=== PATIENT | female | born 1930 | race Caucasian/White ===

== ENCOUNTER 2017-06-13 13:44 | Emergency (ER) | payer OTHER ==
[~2017-06-13] VITALS: Ht 157.5 cm; Wt 64.0 kg
[~2017-06-13 13:44] MED LIST: ALENDRONATE SODI5 MG PO; ASPIR 8181 M1 PO; BACITRACIN3.5 GM RIGHT EYE; BACTRIM,SEPT1 TABLET PO; CALCIUM + D3 E1 EACH PO; CALCIUM 1,0001 EACH PO; DETROL LA4 MG PO; DIOVAN160 MG PO; DIOVAN40 MG PO; Ditropan PO; GLUCOSAMIN-CHO1 EACH PO; HUMALOG100 UNIT/1 SC; HUMALOG100 UNITS/ SQ; LANTUS (UNITS)1 UNIT SC; LANTUS 3 M100 UNITS1 SC; LASIX40 MG PO; LIPITOR80 MG PO; METOPROLOL SUCC25 MG PO; OMEPRAZOLE40 M1 PO; PRADAXA150 MG PO; SPIRIVA1 INHALATI IH; TOPROL XL25 MG PO; TOPROL XL50 MG PO; TOPROL XL6.25 MG PO; Toprol XL PO; VICODIN 5-3001 EACH PO; VITAMIN D2000 UNIT PO; VITAMIN D32000 UNI1 PO
[2017-06-13 14:12] LABS: ADD MIUA? NO; BILIRUBIN NEGATIVE; BLOOD NEGATIVE; COLOR STRAW ((YELLOW)); GLUCOSE (STRIP) NEGATIVE; KETONES NEGATIVE; LEUKOCYTES NEGATIVE; NITRITE NEGATIVE; PROTEIN (STRIP) NEGATIVE; SPECIFIC GRAVITY 1.005 (1.000-1.030); UCUL ADDED? NO; UROBILINOGEN 0.2 MG/DL (0.2-1.0)
[2017-06-13 14:33] LABS: HEMATOCRIT 43.8 % (36.0-46.0); MCHC 32.4 G/DL (30.0-36.0); MCV 92.6 FL (83-99); MEAN PLAT.VOLUME 9.8 uM^3 (9.5-12.4); PLATELET COUNT 275 K/uL (156-360); RBC DIS.WIDTH-CV 15.1 % (11.8-14.6); RBC DIS.WIDTH-SD 51.8 % (39-53); RED BLOOD COUNT 4.73 M/uL (3.80-5.20); WHITE BLOOD COUNT 6.3 K/uL (4.1-10.2)
[2017-06-13 14:42] LABS: CHLORIDE 106 mEq/L (99-109); POTASSIUM 3.6 mEq/L (3.7-5.4); SODIUM 142 mEq/L (136-147)
[2017-06-13 14:44] LABS: GLUCOSE 141 mg/dL (70-99)
[2017-06-13 14:45] LABS: ANION GAP 12 MEQ/L (2-14)
[2017-06-13 14:46] LABS: TOTAL BILIRUBIN 0.5 mg/dL (0.0-1.0)
[2017-06-13 14:48] LABS: ALKALINE PHOSPHATASE 71 IU/L (3-129); GFR ESTIMATE (CALCULATED) > 59 mL/min/
[2017-06-13 14:49] LABS: UREA NITROGEN (BUN) 15 mg/dL (9-23)
[2017-06-13 14:51] LABS: LIPASE 9 U/L (1.0-51.0)
[2017-06-13 17:11] VITALS: BP 130/57
== END 2017-06-13 17:13 | disposition home or self-care (01) ==
LOC: EME 13:44
PROVIDERS: Physician Assistant Medical
DX: R11.0 Nausea (principal); R19.7 Diarrhea, unspecified; I10 Essential (primary) hypertension; J44.9 Chronic obstructive pulmonary disease, unspecified; E11.9 Type 2 diabetes mellitus without complications; Z79.4 Long term (current) use of insulin; Z95.1 Presence of aortocoronary bypass graft; Z95.5 Presence of coronary angioplasty implant and graft; Z79.82 Long term (current) use of aspirin; Z85.038 Personal history of other malignant neoplasm of large intestine; M48.061 Spinal stenosis, lumbar region without neurogenic claudication; Z87.891 Personal history of nicotine dependence
CPT/HCPCS: 74176; 80053; 81003; 83690; 85027; 87493; 87506; 99281; 99284; J7030

== ENCOUNTER 2017-11-11 12:28 | Emergency (ER) | payer OTHER ==
[~2017-11-11] VITALS: Ht 162.6 cm; Wt 63.3 kg
[2017-11-11 16:09] VITALS: BP 170/55
== END 2017-11-11 16:23 | disposition home or self-care (01) ==
LOC: EME 12:28
DX: S00.03XA Contusion of scalp, initial encounter (principal); I10 Essential (primary) hypertension; J44.9 Chronic obstructive pulmonary disease, unspecified; E11.9 Type 2 diabetes mellitus without complications; I25.2 Old myocardial infarction; Z95.5 Presence of coronary angioplasty implant and graft; Z95.1 Presence of aortocoronary bypass graft; Z87.891 Personal history of nicotine dependence; Z85.828 Personal history of other malignant neoplasm of skin; Z79.4 Long term (current) use of insulin; Z88.0 Allergy status to penicillin; Z91.041 Radiographic dye allergy status
CPT/HCPCS: 70450; 72125; 99281; 99283